=== PATIENT | female | born 1995 | race Caucasian/White ===

== ENCOUNTER 2017-06-22 20:59 | Emergency (ER) | payer OTHER ==
[2017-06-22] MEDS ORDERED: ONDANSETRON DISINTEGRATING 4 MG TAB ONE (21:55)
[2017-06-22] MEDS ORDERED: IBUPROFEN 600 MG TAB PO ONE (22:10)
[2017-06-22] MEDS ORDERED: NS 1,000 ML IV ONE (22:10)
[2017-06-22] MEDS ORDERED: ACETAMINOPHEN/CODEINE 300/30MG TAB PO ONE (22:11)
[2017-06-22] MEDS ORDERED: HYDROCODONE/APAP 5/325 TAB PO ONE (22:18)
[2017-06-22] MEDS ORDERED: ONDANSETRON 4 MG/2 ML VIAL IVP ONE (22:19)
--- NOTE | 2017-06-22 22:30 | EDPHY ---
General Time Seen by Provider: 06/22/17 22:00 Narrative: CHIEF COMPLAINT: Flu-like symptoms, staph infection HISTORY OF PRESENT ILLNESS: Patient complains of 1 day history of flu-like symptoms and "a couple months of staph infection." Symptoms started when she awoke morning. She describes body aches, joint pain, headache, neck pain, cough, shortness of breath, fever. She states significant discomfort in all of her joints. She has no chest pain but she does feel short of breath at times. She has a nonproductive cough. Symptoms have continued to worsen. She has nausea but no vomiting. No abdominal pain. Urinary complaints. She also complains of ongoing staph infection. She has been treated for this with a course of antibiotics. She does not know the name, but she knows she took twice a day for 10 days. She finished it without difficulty. The lesions were on her back and on her suprapubic skin. She has no other associated complaints or modifying factors. REVIEW OF SYSTEMS: Ten systems reviewed and are negative unless otherwise noted in the HPI PCP: in [place] SPECIALISTS: None PAST MEDICAL HISTORY: Staph infections PAST SURGICAL HISTORY: None SOCIAL HISTORY: Nonsmoker. [employer] student. Originally from [place]. FAMILY HISTORY: Noncontributory EXAMINATION General Appearance: Alert, no distress Head: normocephalic, atraumatic Eyes: Pupils equal and round, no conjunctival pallor or injection ENT, Mouth: Mucous membranes moist. Uvula midline. Airway widely patent. No erythema edema. Neck: Normal inspection, supple, non-tender. No meningeal signs. Respiratory: Lungs are clear to auscultation. No wheezing, rhonchi or crackles. Cardiovascular: Tachycardic rate. Regular rhythm. No murmur. Gastrointestinal: Abdomen is soft and nontender. No tympany rigidity. Back: non-tender, no bony abnormalities Neurological: A&O, nonfocal, normal gait Skin: Warm and dry, no rash. No petechiae or purpura. No cellulitis. No abscess. Area of eczema on the upper back between the scapulae Extremities: Nontender, no pedal edema. Symmetric range of motion. Psychiatric: Mood and affect normal DIFFERENTIAL DIAGNOSES: Including but not limited to influenza, pneumonitis, viral bronchitis, bacterial bronchitis, pneumonia, RSV MDM: 10:00 p.m. Flu-like symptoms with examination that is consistent with influenza. Her lungs are clear without consolidation or diminishment. She has 100% oxygenation on room air. She is tachycardic and nearly febrile. She is also tachypneic. I have ordered influenza swab and perform this myself. I have ordered IV placement for IV fluid resuscitation and symptomatic medications for her body aches. Although she does meet SIRS criteria I strongly feel this is due to influenza thus I have not ordered blood cultures or lactic acid at this time. If her influenza workup is negative I will reconsider this. She is in no acute distress. She is nontoxic without any rash or signs of staph infection per her history. 10:50 p.m. CBC is unremarkable. Chemistry and influenza test pending. 11:05 p.m. Patient is positive for Influenza A. 11:15 p.m. I have re-evaluated the patient. She is feeling significantly better after IV fluid. She is well-appearing and asking to be discharged home. We discussed the positive flu test. She will receive 1st dose of Tamiflu here and be discharged home with promethazine prepack. We discussed increase fluid intake, rest, anti-inflammatories and nausea cough medicine as prescribed. We discussed ED precautions for worsening symptoms, neck pain or stiffness, intractable fever vomiting. I provided a work and school note for her. She has instructions to follow up with primary care physician early next week. She is discharged home stable condition SUPERVISION: This patient was independently evaluated without direct involvement of or examination by the attending physician. - History Smoking Status: Never smoked - Objective Vital Signs: Initial Vital Signs Temperature (C) 99.9 F 06/22/17 21:23 Heart Rate 119 H 06/22/17 21:23 Respiratory Rate 24 H 06/22/17 21:23 Blood Pressure 108/76 06/22/17 21:23 O2 Sat (%) 100 06/22/17 21:23 O2 Delivery Mode Room Air Allergies/Adverse Reactions: amoxicillin Allergy (Verified 06/22/17 22:13) nickel Allergy (Verified 06/22/17 22:13) Home Medications: Medication Instructions Recorded Benzonatate [Tessalon Pearles (RX)] 100 mg PO Q8 PRN #15 cap 06/22/17 Oseltamivir Phosphate [Tamiflu 75 75 mg PO BID #10 cap 06/22/17 mg (*)] Promethazine HCl [Phenergan 25mg 25 mg PO Q8 PRN #12 tab 06/22/17 (*)] Indigo 28 Tablet 06/22/17 Laboratory Results: Laboratory Results 06/22/17 22:20 06/22/17 22:20 06/22/17 06/22/17 06/22/17 22:20 22:20 22:20 WBC 5.86 10^3/uL 10^3/uL (3.80-9.50) RBC 4.13 10^6/uL L 10^6/uL (4.18-5.33) Hgb 13.0 g/dL g/dL (12.6-16.3) Hct 37.1 % L % (38.0-47.0) MCV 89.8 fL fL (81.5-99.8) MCH 31.5 pg pg (27.9-34.1) MCHC 35.0 g/dL g/dL (32.4-36.7) RDW 12.8 % % (11.5-15.2) Plt Count 207 10^3/uL 10^3/uL (150-400) MPV 10.7 fL fL (8.7-11.7) Neut % (Auto) 82.6 % H % (39.3-74.2) Lymph % (Auto) 7.8 % L % (15.0-45.0) [place] % (Auto) 8.5 % % (4.5-13.0) Eos % (Auto) 0.3 % L % (0.6-7.6) Baso % (Auto) 0.5 % % (0.3-1.7) Nucleat RBC Rel Count 0.0 % % (0.0-0.2) Absolute Neuts (auto) 4.83 10^3/uL 10^3/uL (1.70-6.50) Absolute Lymphs (auto) 0.46 10^3/uL L 10^3/uL (1.00-3.00) Absolute Monos (auto) 0.50 10^3/uL 10^3/uL (0.30-0.80) Absolute Eos (auto) 0.02 10^3/uL L 10^3/uL (0.03-0.40) Absolute Basos (auto) 0.03 10^3/uL 10^3/uL (0.02-0.10) Absolute Nucleated RBC 0.00 10^3/uL 10^3/uL (0-0.01) Immature Gran % 0.3 % % (0.0-1.1) Immature Gran # 0.02 10^3/uL 10^3/uL (0.00-0.10) Sodium 134 mEq/L L mEq/L (135-145) Potassium 3.7 mEq/L mEq/L (3.5-5.2) Chloride 103 mEq/L mEq/L (97-110) Carbon Dioxide 20 mEq/l L mEq/l (22-31) Anion Gap 11 mEq/L mEq/L (8-16) BUN 9 mg/dL mg/dL (7-23) Creatinine 1.0 mg/dL mg/dL (0.6-1.0) Estimated GFR > 60 Glucose 108 mg/dL H mg/dL (70-100) Calcium 9.2 mg/dL mg/dL (8.5-10.4) Beta HCG, Qual NEGATIVE Nasal Influenza A PCR Nasal Influenza B PCR Monoscreen NEGATIVE (NEGATIVE) RSV (PCR) 06/22/17 22:10 WBC RBC Hgb Hct MCV MCH MCHC RDW Plt Count MPV Neut % (Auto) Lymph % (Auto) [place] % (Auto) Eos % (Auto) Baso % (Auto) Nucleat RBC Rel Count Absolute Neuts (auto) Absolute Lymphs (auto) Absolute Monos (auto) Absolute Eos (auto) Absolute Basos (auto) Absolute Nucleated RBC Immature Gran % Immature Gran # Sodium Potassium Chloride Carbon Dioxide Anion Gap BUN Creatinine Estimated GFR Glucose Calcium Beta HCG, Qual Nasal Influenza A PCR FLU A DETECTED H (NEGATIVE) Nasal Influenza B PCR NEGATIVE FOR FLU B (NEGATIVE) Monoscreen RSV (PCR) NEGATIVE FOR RSV (NEGATIVE) Medications Given: Discontinued Medications Hydrocodone Bitart/Acetaminophen ([place] 5/325) 1 tab PO EDNOW ONE Stop: 06/22/17 22:19 Last Admin: 06/22/17 22:33 Dose: Not Given Sodium Chloride (Ns) 1,000 mls @ 0 mls/hr IV EDNOW ONE; Wide Open PRN Reason: Protocol Stop: 06/22/17 22:11 Last Admin: 06/22/17 22:22 Dose: 1,000 mls Ibuprofen (Motrin) 600 mg PO EDNOW ONE Stop: 06/22/17 22:11 Last Admin: 06/22/17 22:23 Dose: 600 mg Ondansetron HCl (Zofran) 4 mg IVP EDNOW ONE Stop: 06/22/17 22:20 Last Admin: 06/22/17 22:22 Dose: 4 mg Departure - Departure Disposition: Home, Routine, Self-Care Clinical Impression: Influenza A Condition: Good Instructions: Promethazine (By mouth), Oseltamivir (By mouth), Influenza (ED) Additional Instructions: 1. Recommend Aleve 2 pills by mouth in the morning 1 pill by mouth at night for the next 5-7 days 2. Increase fluid intake 3. Respiratory in hand contact precautions 4. Follow up with primary care physician in [place] next week 5. Promethazine as prescribed as needed 6. ED precautions as discussed Referrals: CRAIG MEADOWS [Other] - As per Instructions Stand Alone Forms: School Excuse, Work Excuse Prescriptions: Benzonatate [Tessalon Pearles (RX)] 100 mg PO Q8 PRN #15 cap PRN Reason: Cough, Mild Oseltamivir Phosphate [Tamiflu 75 mg (*)] 75 mg PO BID #10 cap Promethazine HCl [Phenergan 25mg (*)] 25 mg PO Q8 PRN #12 tab PRN Reason: Nausea/Vomiting, Use 1st
[2017-06-22 22:55] LABS: PLATELET COUNT 207 10^3/uL (150-400)
[2017-06-22] MEDS ORDERED: OSELTAMIVIR PHOSPHATE 75 MG CAP PO ONE (23:15)
[2017-06-22] MEDS ORDERED: PROMETHAZINE 25 MG PREPACK #4 BTL TAKEHOME ONE (23:15)
[2017-06-22 23:47] VITALS: BP 108/80
== END 2017-06-22 23:46 | disposition home or self-care (01) ==
DX: J10.1 Influenza due to other identified influenza virus with other respiratory manifestations (principal); E86.9 Volume depletion, unspecified
CPT/HCPCS: 96374; J2405

== ENCOUNTER → 2017-09-04 | Outpatient (CLI) | payer OTHER | LOC: FIMAGING 16:20 | PROVIDERS: ATTEND Family Medicine | DX: S62.395A Other fracture of fourth metacarpal bone, left hand, initial encounter for closed fracture (principal); S62.653A Nondisplaced fracture of middle phalanx of left middle finger, initial encounter for closed fracture ==